=== PATIENT | male | born 1995 | race Caucasian/White ===

== ENCOUNTER 2019-01-30 01:47 | Emergency (ER) | payer OTHER ==
[2019-01-30 03:14] VITALS: BP 125/83; PULSE 111; TEMP 98; BMI 36.5
--- NOTE | 2019-01-30 03:25 | PDOC ---
History of Present Illness - General Chief Complaint: Shoulder Dislocation Stated Complaint: L ARM INJURY Time Seen by Provider: 01/30/19 03:24 Past History - Past Medical History Allergies/Adverse Reactions: Allergies Allergy/AdvReac Type Severity Reaction Status Date / Time No Known Allergies Allergy Verified 01/30/19 03:14 Home Medications: Ambulatory Orders NK [No Known Home Medication] 01/30/19 - Suicide/Smoking/Psychosocial Hx Smoking History: Current some day smoker Have you smoked in the past 12 months: Yes Information on smoking cessation initiated: No Hx Alcohol Use: Yes Drug/Substance Use Hx: No *Physical Exam - Vital Signs Last Vital Signs Temp Pulse Resp BP Pulse Ox 98.0 F 111 H 19 125/83 98 01/30/19 01:47 01/30/19 01:47 01/30/19 01:47 01/30/19 01:47 01/30/19 01:47 Procedures - Joint Reduction Left Joint Reduction Site: left: Shoulder Pre-Procedure NV Exam: normal Conscious Sedation: No Reduction Attempts: 1 Amt. of medication administered: 2mg (dilauded IM) Procedure: Scapular Manipulation (minimal traction) Post-Procedure NV Exam: normal Complications: No Post Joint Reduction Film: joint reduced Immobilized: Yes (sling) Progress: Patient tolerated procedure well Medical Decision Making - Medical Decision Making HPI: 23yo M with no significant PMH presenting with L. shoulder pain. Patient states that prior to arrival, he lost his balance and fell with his left upper extremity extended backwards to break his fall. Thereafter he felt pain in his left shoulder and has been unable to move his left arm. Denies any prodrome before falling: no weakness, no dizziness, no chest pain, no shortness of breath. Has never injured the left arm before. Never followed with an orthopedist. Has not taken anything for his pain. No fevers or chills. PCP: Dr. Tom Craft ROS: Constitutional: no fever, no chills HEENT: no throat pain, no dysphagia Cardiovascular: no chest pain, no palpitations Respiratory: no cough, no shortness of breath Gastrointestinal: no abdominal pain, no nausea Genitourinary: no dysuria, no hematuria Musculoskeletal: +LUE pain, no RUE pain Skin: no rash, no itching Neurologic: no headache, no weakness PE: General: Awake, alert, and fully oriented, in no acute distress Head: No signs of trauma Eyes: EOMI, sclera anicteric ENT: Moist mucus membranes Neck: Normal ROM, supple Lungs: Lungs clear, Normal breath sounds Cardio: Regular rhythm, S1 and S2 present Abdomen: Soft, nontender. No guarding, no rebound, no masses Extremities: Distal pulses present LUE: Shoulder with deformity; Patient unable to range shoulder; distal pulse present; normal sensation when compared to RUE SKIN: Warm, Dry, normal turgor Neurologic: Cranial nerves II through XII grossly intact. Normal speech ED Course/MDM: DDX including but not limited to shoulder dislocation, fracture, break, sprain, compartment syndrome Exam consistent with shoulder dislocation L. shoulder film showing dislocation which will require reduction: "3 views of the left shoulder reveal an anterior dislocation. A gross fracture is not seen. The imaging is available for review. " Dilauded IM for pain; patient's girlfriend at the bedside will be driving him home 01/30/19 03:24 L. shoulder dislocation reduced, please see procedure note LUE remains neurovascularly intact L. shoulder reduction confirmed with post-procedure plain film: "2 views of the right shoulder reveal correction of an anterior dislocation. There is a deformity of the humeral head from an anterior dislocation. An acute fracture is not seen. Correlation recommended. Impression: Reduction of anterior dislocation. " L. arm placed in sling Patient given with orthopedic followup Discharged with return precautions *DC/Admit/Observation/Transfer Diagnosis at time of Disposition: Shoulder dislocation Qualifiers: Encounter type: initial encounter Laterality: left Qualified Code(s): S43.005A - Unspecified dislocation of left shoulder joint, initial encounter - Discharge Dispostion Disposition: HOME Condition at time of disposition: Improved - Referrals Referrals: Tom Craft MD [Primary Care Provider] - Mihir Vásquez MD [Staff Physician] - - Patient Instructions Printed Discharge Instructions: DI for Shoulder Dislocation Additional Instructions: You came into the ED for left shoulder pain. Xray showed you had a dislocation which we reduced. Your arm was placed in a sling. Keep the arm in the sling until a doctor says you can take it off. We have referred you to an orthopedist. . Call today and make an appointment to further evaluate your shoulder this week. Your workup is not complete until you do so. You can take tylenol or motrin for pain. Follow the instructions in the medication bottle. Immediate medical attention is required if you experience: any focal numbness or weakness, coldness in your limb, or any new or concerning symptoms. If you think you are having an emergency, call for emergency medical services or present to the emergency department right away. - Post Discharge Activity Forms/Work/School Notes: Back to Work
[2019-01-30] MEDS ORDERED: HYDROmorphone HCL CARPU-JECT 2 MG/1 ML DISP.SYRIN IM ONE (03:30)
[2019-01-30] MEDS ORDERED: HYDROmorphone HCl 2 MG/ML VIAL ONE (03:39)
--- NOTE | 2019-01-30 03:52 | PDOC ---
Attending Attestation - Resident Resident Name: Alyssa Lopez - ED Attending Attestation I have performed the following: I have examined & evaluated the patient, The case was reviewed & discussed with the resident, I agree w/resident's findings & plan - HPI HPI: 01/30/19 03:50 see resident hpi - Physicial Exam PE: 01/30/19 03:50 agree with resident exam - Medical Decision Making 01/30/19 03:50 23yo male ws/p fall with left shoulder pain initial x ra confrimed dislocation with no grioss fracture shoulder relocated with minimal traction and scapular rotation dilaudid 2mg im give fir pain pre procedure N/V in tact post procedure
== END 2019-01-30 05:17 | disposition home or self-care (01) ==
LOC: JER 01:47
PROC: 3E023NZ Introduction of Analgesics, Hypnotics, Sedatives into Muscle, Percutaneous Approach (ICD-10-PCS; principal; 2019-01-30)
DX: M25.512 Pain in left shoulder (principal); F17.210 Nicotine dependence, cigarettes, uncomplicated; S43.005A Unspecified dislocation of left shoulder joint, initial encounter; X58.XXXA Exposure to other specified factors, initial encounter; Y93.89 Activity, other specified; Y92.9 Unspecified place or not applicable
CPT/HCPCS: 73030-TC-LT-FY; 99283-25